=== PATIENT | female | born 1960 | race Caucasian/White ===

== ENCOUNTER 2021-03-10 02:08 | Observation (INO) | payer BC ==
[~2021-03-10] VITALS: Ht 162.6 cm; Wt 96.9 kg
[2021-03-10] MEDS ORDERED: NITROGLYCERIN SINGLE TAB 0.4 MG SL PRN (02:30)
[2021-03-10] MEDS ORDERED: MORPHINE SULFATE 4 MG/ML, 1ML IVPush PRN (02:30)
[2021-03-10] MEDS ORDERED: SODIUM CHLORIDE FLUSH 10ML SYR IVF ONE (02:30)
[2021-03-10 02:49] LABS: BASOPHILS % (AUTO) 1 % (0-1); EOSINOPHILS % (AUTO) 3 % (1-7); LYMPHOCYTES % (AUTO) 40 % (22-44); MEAN CORPUSCULAR HEMOGLOBIN 30.2 pg (27.0-34.8); MEAN CORPUSCULAR HGB CONC 33.4 g/dL (32.4-35.8); MEAN PLATELET VOLUME 8.8 fL (7.4-10.4); MONOCYTES % (AUTO) 9 % (2-9); NEUTROPHILS % (AUTO) 47 % (42-75); PLATELET COUNT 326 x10^3/uL (130-400); RED BLOOD COUNT 4.44 x10^6/uL (3.82-5.3)
[2021-03-10 03:00] LABS: ALANINE AMINOTRANSFERASE 24 U/L (12-78); ALBUMIN 3.2 g/dL (3.4-5.0); ANION GAP 4 mmol/L (5-15); CALCIUM 8.4 mg/dL (8.5-10.1); CHLORIDE 106 mmol/L (98-107); CREATININE 0.98 mg/dL (0.55-1.02)
[2021-03-10] MEDS: PLEASE ENTER ALLERGIES MC SCH ×2 (03:00→11:00)
[2021-03-10 03:01] LABS: HCT (SEDRATE) 40.1 % (34.6-47.8)
[2021-03-10 03:04] LABS: ALKALINE PHOSPHATASE 94 U/L (45-117); BILIRUBIN,TOTAL 0.3 mg/dL (0.2-1.0); TOTAL PROTEIN 6.4 g/dL (6.4-8.2); TROPONIN I < 0.015 ng/mL (0.000-0.045)
[2021-03-10] MEDS ORDERED: ONDANSETRON 2MG/ML, 2ML ONE (03:18)
[2021-03-10] MEDS ORDERED: NITROGLYCERIN SINGLE TAB 0.4 MG SL ONE (03:18)
[2021-03-10] MEDS ORDERED: ONDANSETRON 2MG/ML, 2ML IVPush ONE (03:30)
--- NOTE | 2021-03-10 03:33 | NUR ---
Report to Colin SANZ
[2021-03-10] MEDS ORDERED: LEVO112C4 PO (04:27)
[2021-03-10] MEDS ORDERED: LIOT5TAB11 PO (04:27)
[2021-03-10] MEDS ORDERED: LOSA1TAB22 PO (04:27)
[2021-03-10 04:29] VITALS: BP 102/64
[2021-03-10] MEDS ORDERED: MELATONIN 5 MG TABLET PO PRN (04:30)
[2021-03-10] MEDS ORDERED: COLCHICINE 0.6 MG CAPSULE PO ONE (04:30)
[2021-03-10] MEDS ORDERED: PANTOPRAZOLE 40 MG IV IVPush ONE (04:30)
[2021-03-10] MEDS ORDERED: POLYETHYLENE GLYCOL 17 GM PACKET PO PRN (04:30)
[2021-03-10] MEDS ORDERED: NITROGLYCERIN 0.4 MG/SPRAY SL PRN (04:30)
[2021-03-10] MEDS ORDERED: NITROGLYCERIN 0.4 MG BOTTLE (25 TABS) SL PRN (04:30)
[2021-03-10] MEDS ORDERED: ONDANSETRON 2MG/ML, 2ML IVPush PRN (04:30)
[2021-03-10] MEDS ORDERED: morphine SULFATE 10 MG/ML, 1ML IVPush PRN (04:30)
[2021-03-10] MEDS ORDERED: LABETALOL 5MG/ML, 20ML IVPush PRN (04:30)
[2021-03-10] MEDS: ACETAMINOPHEN 325 MG TABLET PO SCH ×3 (04:47→12:35)
[2021-03-10] MEDS ORDERED: POTASSIUM CHLORIDE 20 MEQ TAB.ER.PRT PO ONE (05:30)
[2021-03-10 06:34] VITALS: BP 106/68
[2021-03-10 09:29] VITALS: BP 113/68
[2021-03-10 09:35] LABS: TROPONIN I < 0.015 ng/mL (0.000-0.045)
[2021-03-10] MEDS ORDERED: COLCHICINE 0.6 MG CAPSULE PO SCH (21:00)
== END 2021-03-10 15:28 | disposition home or self-care (01) ==
LOC: ED 02:20 → INTOOBSV 04:04 → EDIP 04:04 → 5SO 04:21 → DCLOUNGE 15:20
PROVIDERS: ADMIT Internal Medicine; ATTEND Hospitalist
DX: R07.89 Other chest pain (principal); E87.6 Hypokalemia; I10 Essential (primary) hypertension; R73.03 Prediabetes; G56.92 Unspecified mononeuropathy of left upper limb; F19.10 Other psychoactive substance abuse, uncomplicated; Z79.899 Other long term (current) drug therapy
CPT/HCPCS: 36415; 71045; 80053; 83690; 83735; 84484; 85025; 85651; 93005; 93306; 96374; 96375; 99285; C9113; G0378; J2405